=== PATIENT | female | born 1970 | race Caucasian/White ===

== ENCOUNTER 2018-04-20 11:42 | Emergency (ER) | payer MEDICAID ==
[~2018-04-20] VITALS: Ht 160 cm; Wt 54.5 kg
[2018-04-20 11:48] VITALS: TEMP 98.4
[2018-04-20] MEDS ORDERED: ZOFRAN ODT4 MG PO (12:21)
[2018-04-20] MEDS ORDERED: PRIL40 PO (12:21)
[2018-04-20 12:23] LABS: BASO # 0.1 (0.0-0.2); EOS # 0.1 (0.0-0.7); EOS % 1.6 % (0-4.0); GRAN # 4.2 (1.4-6.5); GRAN % 68.7 % (42.2-75.2); HEMOGLOBIN 12.8 g/dl (12.5-16.0); LYMPH # 1.2 (1.2-3.4); LYMPH % 19.8 % (20.0-51.0); MEAN CELL VOLUME 106 fl (80.0-100.0); MEAN CORPUSCULAR HEMOGLOBIN 37 pg (27.0-31.0); MEAN CORPUSCULAR HGB CONC 35 g/dl (33.0-37.0); MEAN PLATELET VOLUME 9.6 fl (7.4-10.4); MONO # 0.5 (0.1-0.6); MONO % 8.6 % (1.7-9.3); PLATELET COUNT 204 K/mm3 (130-400); RED BLOOD COUNT 3.47 M/mm3 (4.10-5.30); REDCELL DISTRIBUTION WIDTH-CV 12.9 % (11.5-14.5)
[2018-04-20 12:26] LABS: HEMATOCRIT 36.6 % (37.0-47.0)
[2018-04-20 12:29] LABS: ALANINE AMINOTRANSFERASE 40 U/L (9-52); ALBUMIN 4.1 gm/dL (3.5-5.0); ALKALINE PHOSPHATASE 104 U/L (50-136); ANION GAP 7 mmol/L (7-16); AST,SGOT 35 U/L (15-37); BILIRUBIN,TOTAL 0.6 mg/dL (0.0-1.0); BLOOD UREA NITROGEN 15 mg/dL (7-17); CALCIUM 9.2 mg/dL (8.4-10.2); CARBON DIOXIDE 29 mmol/L (22-30); CHLORIDE 107 mmol/L (98-107); CREATININE, serum 0.57 mg/dL (0.52-1.25); GLUCOSE 92 mg/dL (74-106); LIPASE 113 U/L (23-300); POTASSIUM 3.9 mmol/L (3.4-5.0); SODIUM 142 mmol/L (137-145); TOTAL PROTEIN 7.1 gm/dL (6.4-8.2)
[2018-04-20 12:42] LABS: TROPONIN-I < 0.012 ng/mL (0.000-0.034)
[2018-04-20 13:00] LABS: COLLECTION METHOD CLEAN CATCH
[2018-04-20 13:38] LABS: MUCOUS Present /lpf; PH 5 (5-8); SQUAMOUS EPITHELIAL 0-2 /hpf; URINE APPEARANCE Clear; URINE BACTERIA None Seen /hpf; URINE BILIRUBIN Negative (NEGATIVE); URINE BLOOD Negative (NEGATIVE); URINE COLOR Straw; URINE GLUCOSE Negative (NEGATIVE); URINE KETONE Negative (NEGATIVE); URINE LEUKOCYTE ESTERASE Negative (NEGATIVE); URINE NITRATE Negative (NEGATIVE); URINE PROTEIN(semi-quant) Negative (NEGATIVE); URINE RBC 0-2 /hpf; URINE UROBILINOGEN Negative (NEGATIVE)
[2018-04-20] MEDS ORDERED: PRILOSEC 20MG20 MG PO (15:00)
[2018-04-20] MEDS ORDERED: CARAFATE 1GM1 G PO (15:00)
[2018-04-20] MEDS ORDERED: NORCO 325 MG-51 TAB PO (15:00)
[2018-04-20 15:40] VITALS: BP 134/88; PULSE 97
[2018-04-21] MEDS ORDERED: CARAFATE 1GM1 G PO (10:44)
[2018-04-21] MEDS ORDERED: NORCO 325 MG-51 TAB PO (10:45)
== END 2018-04-20 15:40 | disposition home or self-care (01) ==
LOC: COL.ER 11:42
PROVIDERS: Nurse Practitioner
DX: R10.12 Left upper quadrant pain (principal); F17.210 Nicotine dependence, cigarettes, uncomplicated; Z90.49 Acquired absence of other specified parts of digestive tract; Z88.5 Allergy status to narcotic agent
CPT/HCPCS: J1170; J2405; J3010; J7030; Q9967

== ENCOUNTER 2018-04-21 10:18 | Day surgery (SDC) | payer MEDICAID ==
[~2018-04-21] VITALS: Ht 162.6 cm; Wt 56.7 kg
[~2018-04-21 10:18] MED LIST: CARAFATE 1GM1 G PO; NORCO 325 MG-51 TAB PO; PRIL40 PO; PRILOSEC 20MG20 MG PO; ZOFRAN ODT4 MG PO
[2018-04-21] MEDS ORDERED: CARAFATE 1GM1 G PO (10:44)
[2018-04-21] MEDS ORDERED: NORCO 325 MG-51 TAB PO (10:45)
[2018-04-21 10:48] VITALS: BP 125/90; PULSE 88; TEMP 97.6
[2018-04-21 11:40] VITALS: BP 113/82; PULSE 84; TEMP 97.8
[2018-04-21 11:55] VITALS: BP 106/79; PULSE 80
[2018-04-21 12:10] VITALS: BP 116/83; PULSE 79
[2018-04-21 12:24] VITALS: BP 115/83; PULSE 79
== END 2018-04-21 12:15 | disposition home or self-care (01) ==
LOC: SDCO 10:18
DX: K29.30 Chronic superficial gastritis without bleeding (principal); K21.9 Gastro-esophageal reflux disease without esophagitis; Z87.11 Personal history of peptic ulcer disease; Z90.710 Acquired absence of both cervix and uterus; Z87.891 Personal history of nicotine dependence
CPT/HCPCS: J2704; J7030